=== PATIENT | male | born 1955 | race Caucasian/White ===

== ENCOUNTER → 2017-10-21 | Outpatient (CLI) | payer OTHER ==
[2017-10-21 16:04] LABS: THYROID STIMULATING HORMONE 3.05 uIU/mL (0.47-4.68)
== END ==
LOC: LAB 14:45
PROVIDERS: ATTEND Student in an Organized Health Care Education/Training Program
DX: R42 Dizziness and giddiness (principal); E03.9 Hypothyroidism, unspecified; D51.8 Other vitamin B12 deficiency anemias; Z12.5 Encounter for screening for malignant neoplasm of prostate
CPT/HCPCS: 36415; 84153; 84439; 84443; 86340

== ENCOUNTER → 2017-10-28 | Outpatient (CLI) | payer OTHER ==
--- NOTE | 2017-10-29 09:11 | RADIOLOGY REPORT (SQ) ---
EXAM DESCRIPTION: MRI CERVICAL SPINE WITHOUT COMPLETED DATE/TIME: 10/28/2017 6:53 pm REASON FOR STUDY: M54.12 RADICULOPATHY, CERVICAL REGION M54.12 RADICULOPATHY, CERVICAL REGION COMPARISON: None. TECHNIQUE: Sagittal and Axial imaging includes T1, T2, STIR and gradient echo sequences. LIMITATIONS: None. FINDINGS: ALIGNMENT: Mild retrolisthesis of C5 over. Mild anterolisthesis of C6 over C7. VERTEBRAE: Intact. BONE MARROW: Mild edematous reactive vertebral body endplate changes at C5-6 DISCS: Diffuse decreased T2 weighted intervertebral disc signal. Significant disc space loss of heig ht at C5-6 and C6-7 HARDWARE: None in the spine. CORD AND BASE OF BRAIN: Normal in size and signal intensity. SOFT TISSUES: No soft tissue masses. C1-C2: No significant spinal stenosis. C2-C3: No significant spinal stenosis or exit foraminal stenosis. C3-C4: Asymmetric left-sided facet and uncovertebral hypertrophy causes high-grade left foraminal yash rowing, best shown on axial T2 series 6, image 7. No right foraminal narrowing or central stenosis C4-C5: Minimal posterior disc bulge and bony spurring is present without central or right foraminal n arrowing. High-grade left foraminal stenosis from facet and uncovertebral hypertrophy, best shown on axial T2 series 6, image 12. C5-C6: Mild to moderate central canal stenosis results from broad diffuse posterior disc bulge and xiomara ny spurring. There is effacement of the CSF around the cervical cord without definite cord flattenin g or abnormal intrinsic cord signal. This is best shown on sagittal T2 image 8 and axial T2 series 6 , image 16. There is high-grade bilateral foraminal narrowing from facet and uncovertebral hypertrop hy C6-C7: Minimal posterior disc bulging is present without significant central canal narrowing. Mild b ilateral foraminal narrowing from facet and uncovertebral hypertrophy C7-T1: No significant spinal stenosis or exit foraminal stenosis. UPPER THORACIC: Bilateral facet arthropathy at T1-2 and T2-3 causes mild bilateral foraminal narrowin g. OTHER: No other significant finding. IMPRESSION: Multilevel degenerative changes as above TECHNICAL DOCUMENTATION: JOB ID: [id number] [employer]- All Rights Reserved
== END ==
LOC: RAD 16:32
PROVIDERS: ATTEND Nurse Practitioner Family
DX: M54.12 Radiculopathy, cervical region (principal); M47.9 Spondylosis, unspecified
CPT/HCPCS: 72141

== ENCOUNTER 2017-11-09 13:49 | Observation (INO) | payer OTHER ==
[2017-11-09] MEDS ORDERED: LORAZEPAM 1 MG TABLET PO ONE (15:00)
--- NOTE | 2017-11-09 15:01 | ER Document Report ---
ED Medical Screen (RME) - General Chief Complaint: Anxiety Stated Complaint: RECTAL BLEEDING Time Seen by Provider: 11/09/17 14:47 Mode of Arrival: Ambulatory Information source: Patient Notes: 62-year-old male history of A. bonnie presents with a panic attack. Patient notes that he is feeling right arm numbness right calf pain rectal bleeding blood in his urine I have greeted and performed a rapid initial assessment of this patient. A comprehensive ED assessment and evaluation of the patient, analysis of test results and completion of the medical decision making process will be conducted by additional ED providers. PHYSICAL EXAMINATION: GENERAL: Well-appearing, well-nourished and in no acute distress. HEAD: Atraumatic, normocephalic. EYES: Pupils equal round extraocular movements intact, conjunctiva are normal. ENT: Nares patent NECK: Normal range of motion LUNGS: No respiratory distress Musculoskeletal: Normal range of motion NEUROLOGICAL: Normal speech, normal gait. PSYCH: Very anxious SKIN: Warm, Dry, normal turgor, no rashes or lesions noted. TRAVEL OUTSIDE OF THE [place] IN LAST 30 DAYS: No - Related Data Allergies/Adverse Reactions: Sulfa (Sulfonamide Antibiotics) Allergy (Verified 11/09/17 13:51) NSAIDS (Non-Steroidal Anti-Inflamma Adverse Reaction (Verified 11/09/17 13:51) Home Medications: Current Home Medications Dronedarone Hydrochloride [Multaq 400 mg Tablet] 400 mg PO BID 11/09/17 [History ] Duloxetine HCl [Cymbalta 20 mg Capsule.dr] 20 mg PO BID 11/09/17 [History] Levothyroxine Sodium 88 mcg PO DAILY 11/09/17 [History] Metoprolol Tartrate 12.5 mg PO BID 11/09/17 [History] Past Medical History - Social History Chew tobacco use (# tins/day): No Frequency of alcohol use: None Drug Abuse: None - Past Medical History Cardiac Medical History: Reports: Hx Atrial Fibrillation, Hx Hypercholesterolemia Renal/ Medical History: Denies: Hx Peritoneal Dialysis Physical Exam - Vital signs Vitals: Temp Pulse Resp BP Pulse Ox 98.0 F 70 16 166/100 H 99 11/09/17 14:00 11/09/17 14:00 11/09/17 14:00 11/09/17 14:00 11/09/17 14:00 Course - Vital Signs Vital signs: Temp Pulse Resp BP Pulse Ox 98.0 F 70 16 166/100 H 99 11/09/17 14:00 11/09/17 14:00 11/09/17 14:00 11/09/17 14:00 11/09/17 14:00 Doctor's Discharge - Discharge Instructions: Anxiety ([facility])
[2017-11-09 15:33] LABS: ABSOLUTE LYMPHOCYTES (AUTO) 1.5 10^3/uL (0.5-4.7); ABSOLUTE MONOCYTES (AUTO) 0.6 10^3/uL (0.1-1.4); ABSOLUTE NEUT (AUTO) 6.2 10^3/uL (1.7-8.2); BASOPHILS % (AUTO) 0.3 % (0-2); EOSINOPHILS % (AUTO) 0.4 % (0-6); HEMATOCRIT 40.5 % (37.9-51.0); HEMOGLOBIN 14.3 g/dL (13.5-17.0); LYMPHOCYTES % (AUTO) 17.6 % (13-45); MEAN CORPUSCULAR HEMOGLOBIN 31.2 pg (27.0-33.4); MEAN CORPUSCULAR HGB CONC 35.3 g/dL (32.0-36.0); MEAN CORPUSCULAR VOLUME 88 fl (80-97); PLATELET COUNT 230 10^3/uL (150-450); RED BLOOD COUNT 4.58 10^6/uL (4.35-5.55); RED CELL DISTRIBUTION WIDTH 12.8 % (11.5-14.0); SEGMENTED NEUTROPHILS % (AUTO) 74.7 % (42-78); TOTAL CELLS COUNTED % (AUTO) 100 %; WHITE BLOOD COUNT 8.3 10^3/uL (4.0-10.5)
[2017-11-09 15:38] LABS: APPEARANCE,URINE CLEAR; BILIRUBIN,URINE NEGATIVE (NEGATIVE); COLOR,URINE YELLOW; GLUCOSE, URINE NEGATIVE (NEGATIVE); KETONES,URINE 20 mg/dL (NEGATIVE); LEUKOCYTE ESTERASE,URINE NEGATIVE (NEGATIVE); NITRITE,URINE NEGATIVE (NEGATIVE); PROTEIN,URINE NEGATIVE (NEGATIVE); URINE SPECIFIC GRAVITY 1.009
[2017-11-09 15:55] LABS: ALANINE AMINOTRANSFERASE 26 U/L (21-72); ALBUMIN 4.5 g/dL (3.5-5.0); ALKALINE PHOSPHATASE 45 U/L (38-126); ANION GAP 11 (5-19); ASPARTATE AMINO TRANSFERASE 43 U/L (17-59); BILIRUBIN,DIRECT 0.4 mg/dL (0.0-0.4); BILIRUBIN,TOTAL 2.6 mg/dL (0.2-1.3); BLOOD UREA NITROGEN 9 mg/dL (7-20); CALCIUM 9.4 mg/dL (8.4-10.2); CARBON DIOXIDE 26 mmol/L (22-30); CHLORIDE 84 mmol/L (98-107); GLUCOSE 98 mg/dL (75-110); POTASSIUM 4.1 mmol/L (3.6-5.0); TOTAL PROTEIN 6.9 g/dL (6.3-8.2)
[2017-11-09 16:03] LABS: SODIUM 120.9 mmol/L (137-145)
[2017-11-09] MEDS ORDERED: NORMAL SALINE 1000 ML 1,000 ML IV ONE (16:11)
[2017-11-09] MEDS ORDERED: NORMAL SALINE 500 ML IV ONE (16:11)
[2017-11-09 17:15] LABS: URINE AMPHETAMINES SCREEN NEGATIVE; URINE BARBITURATES SCREEN NEGATIVE; URINE BENZODIAZEPINES SCREEN NEGATIVE; URINE COCAINE SCREEN NEGATIVE; URINE MARIJUANA (THC) SCREEN NEGATIVE; URINE METHADONE SCREEN NEGATIVE; URINE PHENCYCLIDINE SCREEN NEGATIVE
--- NOTE | 2017-11-09 20:49 | EKG REPORT ---
SEVERITY:- NORMAL ECG - SINUS RHYTHM : Confirmed by: Juan Parada MD 09-Nov-2017 20:48:51
--- NOTE | 2017-11-09 21:00 | ER Document Report ---
ED General - General Chief Complaint: Anxiety Stated Complaint: RECTAL BLEEDING Time Seen by Provider: 11/09/17 14:47 Mode of Arrival: Ambulatory TRAVEL OUTSIDE OF THE [place] IN LAST 30 DAYS: No - HPI Patient complains to provider of: Multiple complaints Notes: Patient presents with multiple complaints come consisting of numbness tingling in all extremities. Rectal bleeding. Patient states blood on tissue when he is wipes no dark stools no bloody stools. Abdominal pain. Weakness. Patient is also states she has a feeling of impending doom. Patient was seen initially in triage and was given Ativan. Upon my evaluation patient resting comfortably no signs of any significant pathology. Patient also complaining of pain in his calf. Denies any recent travel fevers chills nausea vomiting diarrhea. Patient states he has a history of atrial fibrillation and is on an antiarrhythmic but he is not on any anticoagulation. 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 - Related Data Allergies/Adverse Reactions: Sulfa (Sulfonamide Antibiotics) Allergy (Verified 11/09/17 13:51) NSAIDS (Non-Steroidal Anti-Inflamma Adverse Reaction (Verified 11/09/17 13:51) Home Medications: Current Home Medications Dronedarone Hydrochloride [Multaq 400 mg Tablet] 400 mg PO BID 11/09/17 [History ] Duloxetine HCl [Cymbalta 20 mg Capsule.dr] 20 mg PO BID 11/09/17 [History] Levothyroxine Sodium 88 mcg PO DAILY 11/09/17 [History] Metoprolol Tartrate 12.5 mg PO BID 11/09/17 [History] Past Medical History - General Information source: Patient - Social History Smoking Status: Never Smoker Chew tobacco use (# tins/day): No Frequency of alcohol use: None Drug Abuse: None Family History: Reviewed & Not Pertinent Patient has suicidal ideation: No Patient has homicidal ideation: No - Past Medical History Cardiac Medical History: Reports: Hx Atrial Fibrillation, Hx Hypercholesterolemia Renal/ Medical History: Denies: Hx Peritoneal Dialysis Review of Systems - Review of Systems Constitutional: Weakness - Multiple complaints EENT: No symptoms reported Cardiovascular: No symptoms reported Respiratory: No symptoms reported Gastrointestinal: No symptoms reported Genitourinary: No symptoms reported Male Genitourinary: No symptoms reported Musculoskeletal: No symptoms reported Skin: No symptoms reported Hematologic/Lymphatic: No symptoms reported Neurological/Psychological: No symptoms reported Physical Exam - Vital signs Vitals: Temp Pulse Resp BP Pulse Ox 98.0 F 70 16 166/100 H 99 11/09/17 14:00 11/09/17 14:00 11/09/17 14:00 11/09/17 14:00 11/09/17 14:00 Interpretation: Normal - General General appearance: Appears well, Alert - HEENT Head: Normocephalic, Atraumatic Eyes: Normal Pupils: PERRL - Respiratory Respiratory status: No respiratory distress Chest status: Nontender Breath sounds: Normal Chest palpation: Normal - Cardiovascular Rhythm: Regular Heart sounds: Normal auscultation Murmur: No - Abdominal Inspection: Normal Distension: No distension Bowel sounds: Normal Tenderness: Nontender Organomegaly: No organomegaly - Rectal Stool: Heme negative Hemorrhoids: External - Small nonthrombosed Prostate: Normal - Back Back: Normal, Nontender - Extremities General upper extremity: Normal inspection, Nontender, Normal color, Normal ROM , Normal temperature General lower extremity: Normal inspection, Nontender, Normal color, Normal ROM , Normal temperature, Normal weight bearing. No: Govind's sign - Neurological Neuro grossly intact: Yes Cognition: Normal Orientation: AAOx4 Mervin Coma Scale Eye Opening: Spontaneous Milton Coma Scale Verbal: Oriented Milton Coma Scale Motor: Obeys Commands Mervin Coma Scale Total: 15 Speech: Normal Motor strength normal: LUE, RUE, LLE, RLE Sensory: Normal - Psychological Associated symptoms: Normal affect, Normal mood - Skin Skin Temperature: Warm Skin Moisture: Dry Skin Color: Normal Course - Re-evaluation Re-evalutation: 11/09/17 21:00 Patient coming in for evaluation of multiple complaints. Upon reevaluation patient states that he has been drinking a lot of free water as of recently. More likely cause of his hyponatremia. Prior to this patient was started on normal saline. Discussed with hospitalist will admit for telemetry observation. - Vital Signs Vital signs: Temp Pulse Resp BP Pulse Ox 98.0 F 70 17 102/64 94 11/09/17 14:00 11/09/17 14:00 11/09/17 19:01 11/09/17 19:01 11/09/17 19:01 - Laboratory Result Diagrams: 11/09/17 15:21 11/09/17 15:21 Laboratory results interpreted by me: 11/09/17 11/09/17 11/09/17 15:21 15:21 15:21 Sodium 120.9 L* Chloride 84 L Serum Osmolality 247 L Total Bilirubin 2.6 H Urine Ketones 20 H Urine Blood SMALL H Urine Urobilinogen 2.0 H Discharge - Discharge Clinical Impression: Hyponatremia Condition: Good Disposition: ADMITTED OBSERVATION Unit Admitted: Telemetry Instructions: Anxiety ([facility])
[2017-11-09] MEDS ORDERED: ACETAMINOPHEN 325 MG TABLET PO PRN (21:03)
[2017-11-09] MEDS ORDERED: ONDANSETRON HCL INJ/PF 4 MG/2 ML SDV IV PRN (21:03)
[2017-11-09] MEDS ORDERED: IPRATROPIUM/ALBUTEROL 0.5-2.5 MG/3 ML AMPUL NEB PRN (21:03)
[2017-11-09] MEDS: HEPARIN SOD (PORCINE) 5,000 UNIT/ML 1 ML SYRINGE SUBCUT SCH (21:42)
[2017-11-09] MEDS ORDERED: FUROSEMIDE INJ/PF 20 MG/2 ML SDV IV ONE (22:00)
[2017-11-09] MEDS ORDERED: DRONEDARONE HYDROCHLORIDE 400 MG TABLET PO ONE (23:45)
[2017-11-10 00:53] LABS: ANION GAP 8 (5-19); BLOOD UREA NITROGEN 8 mg/dL (7-20); CALCIUM 9.1 mg/dL (8.4-10.2); CARBON DIOXIDE 28 mmol/L (22-30); CHLORIDE 90 mmol/L (98-107); GLUCOSE 101 mg/dL (75-110); POTASSIUM 3.9 mmol/L (3.6-5.0); SODIUM 125.7 mmol/L (137-145)
[2017-11-10 04:51] LABS: ABSOLUTE EOSINOPHILS # (AUTO) 0.2 10^3/uL (0.0-0.6); ABSOLUTE LYMPHOCYTES (AUTO) 1.9 10^3/uL (0.5-4.7); ABSOLUTE MONOCYTES (AUTO) 0.6 10^3/uL (0.1-1.4); ABSOLUTE NEUT (AUTO) 3.5 10^3/uL (1.7-8.2); BASOPHILS % (AUTO) 0.5 % (0-2); EOSINOPHILS % (AUTO) 2.7 % (0-6); HEMATOCRIT 38.6 % (37.9-51.0); HEMOGLOBIN 13.6 g/dL (13.5-17.0); MEAN CORPUSCULAR HEMOGLOBIN 31.4 pg (27.0-33.4); MEAN CORPUSCULAR HGB CONC 35.2 g/dL (32.0-36.0); MEAN CORPUSCULAR VOLUME 89 fl (80-97); PLATELET COUNT 205 10^3/uL (150-450); RED BLOOD COUNT 4.32 10^6/uL (4.35-5.55); RED CELL DISTRIBUTION WIDTH 12.8 % (11.5-14.0); SEGMENTED NEUTROPHILS % (AUTO) 56.8 % (42-78); TOTAL CELLS COUNTED % (AUTO) 100 %; WHITE BLOOD COUNT 6.2 10^3/uL (4.0-10.5)
[2017-11-10] MEDS: HEPARIN SOD (PORCINE) 5,000 UNIT/ML 1 ML SYRINGE SUBCUT SCH ×3 (05:45→22:15)
--- NOTE | 2017-11-10 07:38 | PDOC H&P ---
History of Present Illness Admission Date/PCP: 11/09/17 21:13 CAROLINA MELENDEZ DO Patient complains of: Nausea History of Present Illness: NOEMI GAYTAN is a 62 year old male with past medical history of depression and anxiety, hypertension and atrial fibrillation. He presents with multiple complaints of nausea, numbness and tingling, and a sense of impending doom. In the emergency room he is notably anxious and workup is unremarkable with exception to a sodium of 120. Serum osmolarity with of 247. Patient admits to drinking approximately 1 gallon of water per day and recently started on Cymbalta. He receives normal saline and referred to the hospitalist for admission. Past Medical History Cardiac Medical History: Reports: Atrial Fibrillation, Hyperlipidema Psychiatric Medical History: Reports: Depression Social History Information Source: Patient Smoking Status: Never Smoker Frequency of Alcohol Use: Rare Hx Recreational Drug Use: No Hx Prescription Drug Abuse: No - Advance Directive Resuscitation Status: Full Code Family History Family History: Hypertension, Other - Anxiety Parental Family History Reviewed: Yes Children Family History Reviewed: Yes Sibling(s) Family History Reviewed.: Yes Medication/Allergy Home Medications: Dronedarone Hydrochloride [Multaq 400 mg Tablet] 400 mg PO BID 11/09/17 Duloxetine HCl [Cymbalta 20 mg Capsule.dr] 20 mg PO BID 11/09/17 Levothyroxine Sodium 88 mcg PO DAILY 11/09/17 Metoprolol Tartrate 12.5 mg PO BID 11/09/17 Allergies/Adverse Reactions: Sulfa (Sulfonamide Antibiotics) Allergy (Verified 11/09/17 13:51) NSAIDS (Non-Steroidal Anti-Inflamma Adverse Reaction (Verified 11/09/17 13:51) Review of Systems Constitutional: ABSENT: chills, fever(s), headache(s), weight gain, weight loss Eyes: ABSENT: visual disturbances Ears: ABSENT: hearing changes Cardiovascular: ABSENT: chest pain, dyspnea on exertion, edema, orthropnea, palpitations Respiratory: ABSENT: cough, hemoptysis Gastrointestinal: ABSENT: abdominal pain, constipation, diarrhea, hematemesis, hematochezia, nausea, vomiting Genitourinary: ABSENT: dysuria, hematuria Musculoskeletal: ABSENT: joint swelling Integumentary: ABSENT: rash, wounds Neurological: ABSENT: abnormal gait, abnormal speech, confusion, dizziness, focal weakness, syncope Psychiatric: ABSENT: anxiety, depression, homidical ideation, suicidal ideation Endocrine: ABSENT: cold intolerance, heat intolerance, polydipsia, polyuria Hematologic/Lymphatic: ABSENT: easy bleeding, easy bruising Physical Exam Vital Signs: Temp Pulse Resp BP Pulse Ox 97.8 F 69 17 131/80 H 100 11/10/17 05:01 11/10/17 05:01 11/10/17 05:01 11/10/17 05:01 11/10/17 05:01 Intake & Output 11/08/17 11/09/17 11/10/17 11:59 11:59 11:59 Intake Total 120 Balance 120 Weight 72.4 kg General appearance: PRESENT: no acute distress, well-developed, well-nourished Head exam: PRESENT: atraumatic, normocephalic Eye exam: PRESENT: conjunctiva pink, EOMI, PERRLA. ABSENT: scleral icterus Ear exam: PRESENT: normal external ear exam Mouth exam: PRESENT: moist, tongue midline Neck exam: ABSENT: carotid bruit, JVD, lymphadenopathy, thyromegaly Respiratory exam: PRESENT: clear to auscultation rashaun. ABSENT: rales, rhonchi, wheezes Cardiovascular exam: PRESENT: RRR. ABSENT: diastolic murmur, rubs, systolic murmur Pulses: PRESENT: normal dorsalis pedis pul Vascular exam: PRESENT: normal capillary refill GI/Abdominal exam: PRESENT: normal bowel sounds, soft. ABSENT: distended, guarding, mass, organolmegaly, rebound, tenderness Rectal exam: PRESENT: deferred Extremities exam: PRESENT: full ROM. ABSENT: calf tenderness, clubbing, pedal edema Neurological exam: PRESENT: alert, awake, oriented to person, oriented to place , oriented to time, oriented to situation, CN II-XII grossly intact. ABSENT: motor sensory deficit Psychiatric exam: PRESENT: appropriate affect, normal mood. ABSENT: homicidal ideation, suicidal ideation Skin exam: PRESENT: dry, intact, warm. ABSENT: cyanosis, rash Results Laboratory Results: 11/10/17 04:00 11/10/17 00:14 11/10/17 11/10/17 00:14 04:00 WBC 6.2 RBC 4.32 L Hgb 13.6 Hct 38.6 MCV 89 MCH 31.4 MCHC 35.2 RDW 12.8 Plt Count 205 Seg Neutrophils % 56.8 Lymphocytes % 31.0 Monocytes % 9.0 Eosinophils % 2.7 Basophils % 0.5 Absolute Neutrophils 3.5 Absolute Lymphocytes 1.9 Absolute Monocytes 0.6 Absolute Eosinophils 0.2 Absolute Basophils 0.0 Sodium 125.7 L Potassium 3.9 Chloride 90 L Carbon Dioxide 28 Anion Gap 8 BUN 8 Creatinine 0.68 Est GFR ( Amer) > 60 Est GFR (Non-Af Amer) > 60 Glucose 101 Calcium 9.1 Assessment & Plan - Diagnosis (1) Hyponatremia Is this a current diagnosis for this admission?: Yes Plan: Euvolemic, hypotonic hyponatremia secondary to primary polydipsia and recent Cymbalta initiation. Admission to telemetry bed, serial chemistries. Fluid restriction and education. Cymbalta held, consider trazodone (2) Anxiety Is this a current diagnosis for this admission?: Yes Plan: [facility] consider trazodone. (3) Atrial fibrillation Is this a current diagnosis for this admission?: Yes Plan: Rate control resume home regiment. - Time Time Spent: 30 to 50 Minutes
[2017-11-10] MEDS ORDERED: SODIUM CHLORIDE 1 GM TABLET PO SCH (08:15)
[2017-11-10] MEDS: METOPROLOL TARTRATE 25 MG TABLET PO SCH ×2 (10:13→18:05)
[2017-11-10] MEDS: TRAZODONE HCL 50 MG TABLET PO SCH ×2 (10:14→22:14)
[2017-11-10] MEDS: DRONEDARONE HYDROCHLORIDE 400 MG TABLET PO SCH ×2 (10:15→18:05)
[2017-11-10] MEDS: DOCUSATE SODIUM 100 MG CAPSULE PO SCH ×2 (10:15→18:05)
--- NOTE | 2017-11-10 16:24 | XCELERA REPORT ---
[address] [address] Lower Extremity Venous Evaluation Name: NOEMI GAYTAN Age: 62 yrs Gender: Male : 1955 Patient Status: Emergency Patient Location: ER Study Date: 11/09/2017 05:53 PM Procedure: Color flow and duplex imaging of the veins of the right lower extremity as well as the left Common Femoral vein. Reason For Study: right calf pain Ordering Physician: CARLY SMALLS Performed By: Antonia Olmos Right Sided Venous Evaluation Normal vessel filling wall to wall, compression and augmentation as well as Colour flow down to the infrageniculate veins. Left Sided Venous Evaluation The left common femoral vein is fully compressible. Spontaneous and phasic flow is present in the left common femoral vein. Interpretation Summary No duplex evidence of DVT or obstruction in the right lower extremity nor in the left Common Femoral vein. : CARLY SMALLS > Dawit Frank
[2017-11-10] MEDS ORDERED: NORMAL SALINE 1000 ML 1,000 ML IV PRN (16:32)
--- NOTE | 2017-11-10 17:57 | PDOC PROGRESS REPORT ---
Subjective Progress Note for:: 11/10/17 Subjective:: Admitted for hyponatremia secondary to secondary to cymbalta. Patient is still very anxious about that hyponatremia. He believes that he has some awful disease causing his SIADH. Patient otherwise feels better. Reason For Visit: HYPONATREMIA, CHF, HYPOTHYROID Physical Exam Vital Signs: Temp Pulse Resp BP Pulse Ox 98.5 F 68 16 128/85 H 99 11/10/17 15:58 11/10/17 15:58 11/10/17 15:58 11/10/17 15:58 11/10/17 15:58 Intake & Output 11/09/17 11/10/17 11/11/17 06:59 06:59 06:59 Intake Total 120 100 Balance 120 100 Weight 72.4 kg General appearance: PRESENT: mild distress, well-developed, well-nourished Head exam: PRESENT: normocephalic Eye exam: PRESENT: EOMI. ABSENT: scleral icterus Mouth exam: PRESENT: moist Neck exam: ABSENT: carotid bruit, JVD, lymphadenopathy, thyromegaly Respiratory exam: PRESENT: clear to auscultation rashaun. ABSENT: rales, rhonchi, wheezes Cardiovascular exam: PRESENT: RRR. ABSENT: diastolic murmur, rubs, systolic murmur GI/Abdominal exam: PRESENT: normal bowel sounds, soft. ABSENT: distended, guarding, mass, organolmegaly, rebound, tenderness Rectal exam: PRESENT: deferred Extremities exam: PRESENT: full ROM. ABSENT: calf tenderness, clubbing, pedal edema Neurological exam: PRESENT: alert, awake, oriented to person, oriented to place , oriented to time, oriented to situation, CN II-XII grossly intact. ABSENT: motor sensory deficit Psychiatric exam: PRESENT: anxious, normal mood. ABSENT: homicidal ideation, suicidal ideation Skin exam: PRESENT: dry, intact, warm. ABSENT: cyanosis, rash Results Laboratory Results: 11/10/17 04:00 11/10/17 11:44 11/10/17 11/10/17 11/10/17 00:14 04:00 11:44 WBC 6.2 RBC 4.32 L Hgb 13.6 Hct 38.6 MCV 89 MCH 31.4 MCHC 35.2 RDW 12.8 Plt Count 205 Seg Neutrophils % 56.8 Lymphocytes % 31.0 Monocytes % 9.0 Eosinophils % 2.7 Basophils % 0.5 Absolute Neutrophils 3.5 Absolute Lymphocytes 1.9 Absolute Monocytes 0.6 Absolute Eosinophils 0.2 Absolute Basophils 0.0 Sodium 125.7 L 124.8 L Potassium 3.9 Chloride 90 L Carbon Dioxide 28 Anion Gap 8 BUN 8 Creatinine 0.68 Est GFR ( Amer) > 60 Est GFR (Non-Af Amer) > 60 Glucose 101 Calcium 9.1 Assessment & Plan - Diagnosis (1) Hyponatremia Is this a current diagnosis for this admission?: Yes Plan: Secondary to cymbalta. Sodium is gradually trending up. Patient hesistant to take sodium tablets. Will start on NS at 100cc/hr and monitor sodium Q6. (2) Anxiety Is this a current diagnosis for this admission?: Yes Plan: Patient started on trazadone. Will looking into other medications that treat anxiety that wont cause hyponatremia. (3) Atrial fibrillation Qualifiers: Atrial fibrillation type: chronic Qualified Code(s): I48.2 - Chronic atrial fibrillation Is this a current diagnosis for this admission?: Yes Plan: Rate controlled. Continue home medication. (4) Hypothyroid Qualifiers: Hypothyroidism type: acquired Qualified Code(s): E03.9 - Hypothyroidism, unspecified Is this a current diagnosis for this admission?: Yes Plan: Continue home medication and check thyroid levels in the am. - Time Time Spent with patient: 15-24 minutes Anticipated discharge: Home with Homehealth Within: within 72 hours - Inpatient Certification Medical Necessity: Need For IV Fluids
[2017-11-11 04:54] LABS: ANION GAP 11 (5-19); BLOOD UREA NITROGEN 16 mg/dL (7-20); CALCIUM 9.5 mg/dL (8.4-10.2); CARBON DIOXIDE 26 mmol/L (22-30); CHLORIDE 95 mmol/L (98-107); GLUCOSE 96 mg/dL (75-110); POTASSIUM 4.2 mmol/L (3.6-5.0)
[2017-11-11] MEDS: HEPARIN SOD (PORCINE) 5,000 UNIT/ML 1 ML SYRINGE SUBCUT SCH (05:35)
[2017-11-11] MEDS ORDERED: LEVOTHYROXINE SODIUM 0.088 MG TABLET PO SCH (06:00)
[2017-11-11] MEDS ORDERED: NORMAL SALINE 1000 ML 1,000 ML IV PRN (08:00)
[2017-11-11] MEDS: METOPROLOL TARTRATE 25 MG TABLET PO SCH (09:51)
[2017-11-11] MEDS: DOCUSATE SODIUM 100 MG CAPSULE PO SCH (09:51)
[2017-11-11] MEDS: DRONEDARONE HYDROCHLORIDE 400 MG TABLET PO SCH (09:51)
[2017-11-11 11:50] VITALS: BP 106/65
--- NOTE | 2017-11-11 17:48 | PDOC DISCHARGE SUMMARY ---
General - Admit/Disc Date/PCP Admission Date/Primary Care Provider: 11/09/17 21:13 CAROLINA MELENDEZ, Discharge Date: 11/11/17 - Discharge Diagnosis (1) Hyponatremia Is this a current diagnosis for this admission?: Yes (2) Anxiety Is this a current diagnosis for this admission?: Yes (3) Atrial fibrillation Is this a current diagnosis for this admission?: Yes (4) Hypothyroid Is this a current diagnosis for this admission?: Yes - Additional Information Resuscitation Status: Full Code Discharge Diet: Regular Discharge Activity: Activity As Tolerated Home Medications: Dronedarone Hydrochloride [Multaq 400 mg Tablet] 400 mg PO BID 11/09/17 Levothyroxine Sodium 88 mcg PO DAILY 11/09/17 Metoprolol Tartrate 12.5 mg PO BID 11/09/17 History of Present Illness History of Present Illness: NOEMI GAYTAN is a 62 year old male history of depression anxiety hypertension atrial fibrillation. Patient presented with multiple complaints but was found to be hyponatremic with a sodium of 120. She was recently started on Cymbalta and drinks 1 gallon of water a day. For the H&P dictated by Dr. Mays for complete details. Hospital Course Hospital Course: Patient was brought into the hospital under observation for symptomatic hyponatremia.. Patient was placed on placed on fluid restriction his Cymbalta was discontinued. Patient's sodium was monitored and he became distressed when his sodium went from 125-124. Discussed this with patient started patient on normal saline at 100 cc/h. Patient later on refused NS and sodium tablets. His sodium continue to gradually trend up and was 132 on discharge. Patient stated he felt better and was ready to go home. Advised patient that this is will most likely happen again if he resumes certain medications i.e. Cymbalta for or most of the antidepressants. Patient has how frequently she monitor his sodium. I stated that patient can probably check it within the next week. Patient went to check his sodium today after discharge. Physical Exam Vital Signs: Temp Pulse Resp BP Pulse Ox 98.4 F 65 16 106/65 98 11/11/17 11:48 11/11/17 11:48 11/11/17 11:48 11/11/17 11:48 11/11/17 11:48 Intake & Output 12/25/17 12/26/17 12/27/17 06:59 06:59 06:59 Intake Total 120 2260 Output Total 2014 Balance 120 245 Weight 72.4 kg 72.4 kg General appearance: PRESENT: no acute distress, well-developed, well-nourished Head exam: PRESENT: atraumatic, normocephalic Eye exam: PRESENT: conjunctiva pink, EOMI, PERRLA. ABSENT: scleral icterus Ear exam: PRESENT: normal external ear exam Mouth exam: PRESENT: moist, tongue midline Neck exam: ABSENT: carotid bruit, JVD, lymphadenopathy, thyromegaly Respiratory exam: PRESENT: clear to auscultation rashaun. ABSENT: rales, rhonchi, wheezes Cardiovascular exam: PRESENT: RRR. ABSENT: diastolic murmur, rubs, systolic murmur Pulses: PRESENT: normal dorsalis pedis pul Vascular exam: PRESENT: normal capillary refill GI/Abdominal exam: PRESENT: normal bowel sounds, soft. ABSENT: distended, guarding, mass, organolmegaly, rebound, tenderness Rectal exam: PRESENT: deferred Extremities exam: PRESENT: full ROM. ABSENT: calf tenderness, clubbing, pedal edema Neurological exam: PRESENT: alert, awake, oriented to person, oriented to place , oriented to time, oriented to situation, CN II-XII grossly intact. ABSENT: motor sensory deficit Psychiatric exam: PRESENT: appropriate affect, normal mood. ABSENT: homicidal ideation, suicidal ideation Skin exam: PRESENT: dry, intact, warm. ABSENT: cyanosis, rash Results Laboratory Results: 11/10/17 04:00 11/11/17 04:00 11/10/17 11/11/17 11/11/17 18:10 00:11 04:00 Sodium 131.1 L 128.9 L 132.0 L Potassium 4.2 Chloride 95 L Carbon Dioxide 26 Anion Gap 11 BUN 16 Creatinine 0.87 Est GFR ( Amer) > 60 Est GFR (Non-Af Amer) > 60 Glucose 96 Calcium 9.5 Qualifiers P[place]INT BEING DISCHARGED WITH ANY OF THE FOLLOWING DIAGNOSIS?: No Plan Time Spent: Greater than 30 Minutes
[2017-11-11] MEDS ORDERED: TRAZODONE HCL 50 MG TABLET PO SCH (22:00)
== END 2017-11-11 12:05 | disposition home or self-care (01) ==
LOC: ER 13:49 → EH 21:13 → 5 22:50
PROVIDERS: ADMIT Internal Medicine; ATTEND Internal Medicine
DX: E87.1 Hypo-osmolality and hyponatremia (principal); T43.215A Adverse effect of selective serotonin and norepinephrine reuptake inhibitors, initial encounter; F41.9 Anxiety disorder, unspecified; I48.2 Chronic atrial fibrillation; E03.9 Hypothyroidism, unspecified; R63.1 Polydipsia; F32.9 Major depressive disorder, single episode, unspecified; I10 Essential (primary) hypertension; M79.669 Pain in unspecified lower leg; K62.5 Hemorrhage of anus and rectum; K64.4 Residual hemorrhoidal skin tags; Z79.899 Other long term (current) drug therapy; Z82.49 Family history of ischemic heart disease and other diseases of the circulatory system
CPT/HCPCS: 93005; 99285; 96374; 36415 ×3; 80307 ×2; 83735; 83930; 84295 ×2; 84443; 83935; 85025 ×2; 82272; 80048 ×2; 80053; 81001; 83880; 93971 ×2; 93010; G0378 ×4; J1940; J3490; J7030 ×2; J7040

== ENCOUNTER → 2017-11-11 | Outpatient (CLI) | payer OTHER ==
[2017-11-11 17:25] LABS: ANION GAP 14 (5-19); BLOOD UREA NITROGEN 19 mg/dL (7-20); CARBON DIOXIDE 28 mmol/L (22-30); CHLORIDE 93 mmol/L (98-107); CREATININE RESULT 1.12 mg/dL (0.52-1.25); GLUCOSE 103 mg/dL (75-110); POTASSIUM 4.4 mmol/L (3.6-5.0); SODIUM 134.5 mmol/L (137-145)
== END ==
LOC: LAB 16:19
PROVIDERS: ATTEND Physician Assistant
DX: E87.1 Hypo-osmolality and hyponatremia (principal)
CPT/HCPCS: 36415; 80048; 84588

== ENCOUNTER → 2017-11-14 | Outpatient (CLI) | payer OTHER ==
[2017-11-14 13:36] LABS: ANION GAP 13 (5-19); BLOOD UREA NITROGEN 18 mg/dL (7-20); CALCIUM 10.5 mg/dL (8.4-10.2); CARBON DIOXIDE 25 mmol/L (22-30); CHLORIDE 97 mmol/L (98-107); GLUCOSE 98 mg/dL (75-110); POTASSIUM 4.4 mmol/L (3.6-5.0)
[2017-11-14 13:39] LABS: SODIUM 135.1 mmol/L (137-145)
[2017-11-15 22:04] LABS: 24 HOUR URINE SODIUM RESULT 71 mmol/day (40-200); URINE SODIUM 51 mmol/L (30-90)
== END ==
LOC: LAB 12:34
PROVIDERS: ATTEND Student in an Organized Health Care Education/Training Program
DX: Z00.00 Encounter for general adult medical examination without abnormal findings (principal); E87.1 Hypo-osmolality and hyponatremia
CPT/HCPCS: 36415; 80048; 84300

== ENCOUNTER → 2017-11-24 | Outpatient (CLI) | payer OTHER ==
[2017-11-24 16:36] LABS: ANION GAP 10 (5-19); BLOOD UREA NITROGEN 17 mg/dL (7-20); CALCIUM 9.7 mg/dL (8.4-10.2); CARBON DIOXIDE 27 mmol/L (22-30); CHLORIDE 97 mmol/L (98-107); GLUCOSE 93 mg/dL (75-110); POTASSIUM 4.6 mmol/L (3.6-5.0); SODIUM 133.6 mmol/L (137-145)
== END ==
LOC: LAB 15:50
PROVIDERS: ATTEND Student in an Organized Health Care Education/Training Program
DX: Z00.00 Encounter for general adult medical examination without abnormal findings (principal)
CPT/HCPCS: 36415; 80048